=== PATIENT | male | born 1975 | race African-American/Black ===

== ENCOUNTER 2019-11-05 07:10 | Emergency (ER) | payer OTHER, MEDICAID, SELFPAY ==
[2019-11-05 07:19] VITALS: BP 116/78; PULSE 66; RESP 16; TEMP 36.8; O2SAT 97; BMI 38.3
--- NOTE | 2019-11-05 07:25 | ED.SKABFB ---
HPI - Skin/Abscess/Foreign Bdy General Chief complaint: Skin/Abscess/Foreign Body Stated complaint: BUMP ON TESTICLES, GROWING Time Seen by Provider: 11/05/19 07:25 History of Present Illness HPI narrative: 44-year-old gentleman with a history of type 2 diabetes diet controlled no new sexual partners presents with a growing mass in the posterior part of his scrotum heading towards his perineal body. Initially thought it was an ingrown hair or small cyst that has been present for a low number of months. His primary care physician had seen at an reassured him there is nothing to be concerned with. Over the last week it has grown dramatically extended into the upper part of the testicles lung perineal body and is becoming more uncomfortable because of the size. No fevers no chills. No difficulties with his testicles with erections with ejaculation or significant pain. He has no abdominal pain, no penile discharge no constipation no rashes and no lesions vesicles or skin changes over the scrotum perineum or testicles. Related Data Home Medications Medication Instructions Recorded Confirmed ifwjuge-jweomszrsemiu-eijaalaq 1 tab PO #0 12/24/16 [Excedrin Extra Strength] Previous Rx's Medication Instructions Recorded doxycycline hyclate 100 mg PO Q12H #20 cap 12/24/16 clindamycin HCl 300 mg PO TID #42 cap 11/05/19 sulfamethoxazole-trimethoprim 1 tab PO BID #28 tab 11/05/19 [Bactrim DS] Allergies Allergy/AdvReac Type Severity Reaction Status Date / Time hydrocodone [HYDROCODONE] Allergy Severe Unverified 05/16/17 12:33 Review of Systems Review of Systems Narrative: Pertinent positive and negative findings as per HPI Remainder of review of systems is otherwise unremarkable for Constitutional: Fevers, chills, weakness ENT: No sore throat, neck pain, ear pain CV: Chest pain, palpitations, dyspnea on exertion Respiratory: Cough, wheeze, dyspnea GI: Nausea, vomiting, diarrhea, change in bowel habits, black or bloody stools : Dysuria, hematuria, flank pain MS: Muscle weakness, numbness, joint swelling or warmth Skin: Rashes, nonhealing lesions Neuro: Syncope, dizziness, tingling Psych: Depression, anxiety, suicidal ideation Endocrine: Fatigue, heat or cold intolerance, very dry skin Heme: Easy bruising or bleeding Allergy: Seasonal rhinorrhea, itchy eyes Patient History Medical History Type 2 diabetes mellitus (Acute) Substance Use Type: marijuana Exam Narrative Exam Narrative: General: Healthy appearing, in no acute distress. Able to give a complete and coherent history. Well-nourished well-developed HEENT: Moist mucous membranes, normal sclera with reactive pupils, Abdomen: Soft nontender good bowel tones, no flank pain Skin: Warm and dry, no rashes Neurologic: Grossly neurologically intact with no obvious asymmetries or abnormalities Extremities: No trauma, well perfused Psych: Cooperative, appropriate insight and affect Genitalia: Normal circumcised penis without skin changes vesicles or lesions. Bilaterally descended testicles that are nontender to palpation with no epididymal tenderness behind the left testicle connecting with perineal body there is an approximately 6 x 6 cm of fluctuance and with further evaluation it begins draining. There are 2 draining sites without significant necrosis or cellulitis around these 2 sites. Moderate volume of purulence material is easily expressed. Purulent material is sent for culture. It does appear that all of the fluctuance has drained nicely. Her still remains an approximately 4 x 4 cm of induration at the base of the scrotum on the left side without significant pain or cellulitis. Initial Vital Signs Initial Vital Signs: Vital Signs Temperature 98.3 F 11/05/19 07:19 Pulse Rate 66 11/05/19 07:19 Respiratory Rate 16 11/05/19 07:19 Blood Pressure 116/78 11/05/19 07:19 Pulse Oximetry 97 11/05/19 07:19 Course Orders Ordered: ED Orders 11/05/19 07:39 Wound Culture and Gram Stain Stat Vital Signs Vital signs: Vital Signs - 8 hr 11/05/19 07:19 Temperature 98.3 F Pulse Rate 66 Respiratory Rate 16 Blood Pressure 116/78 Pulse Oximetry 97 MDM - Skin/Abscess/Foreign Bdy MDM Narrative Medical decision making narrative: Care is briefly reviewed with Dr. Dowling, urology. In light of the nontoxic appearance otherwise no clinical evidence of sepsis, no surrounding cellulitis no fevers and no significant pain he did not feel that additional workup aside from draining the area and 14 days of antibiotics with MRSA coverage would be needed. Patient will be double covered for MRSA with peau Septra and clindamycin and discharged home. Discharge Plan Departure Patient Disposition: Home Clinical Impression: Abscess of scrotum Instructions: DI for Scrotal Abscess Activity Restrictions/Additional Instructions: Thank you for coming in today That little bump that you had was very likely an ingrown hair discharge you thought and then became infected. As we were doing her physical exam today it began draining itself and fortunately I believe we were able to get all of the pus out of the abscess. There is not any surrounding cellulitis or other infection. There is no evidence of overwhelming infection or sepsis. Your care is briefly reviewed with our on-call urologist who agreed that draining the abscess and 14 days of antibiotics to cover MRSA would be appropriate. i am going to have you begin Bactrim DS and clindamycin. Please complete a full 14 day course of antibiotics. This is a bit longer than we typically do an important to prevent any complications. If you notice that your having fevers, increasing redness spreading from your scrotum to your groin are appear legs, abdominal pain, body aches or chills or other symptoms with your scrotum testicles or penis that are concerning you need to return to the emergency department as soon as possible. I hope you heal quickly Prescriptions: New sulfamethoxazole-trimethoprim [Bactrim DS] 800-160 mg tablet 1 tab PO BID Qty: 28 RF: 0 clindamycin HCl 300 mg capsule 300 mg PO TID Qty: 42 RF: 0 No Action aeatgaq-wljqqkyoyexry-[id number] [Excedrin Extra Strength] 1 EACH tablet 1 tab PO Qty: 0 RF: 0 doxycycline hyclate 100 MG capsule 100 mg PO Q12H Qty: 20 RF: 0 Referrals: Blanco Asif ARNP [Primary Care Provider] -
== END 2019-11-05 07:58 | disposition home or self-care (01) ==
PROVIDERS: Emergency Provider Emergency Medicine; Family Provider Registered Nurse; PCP Registered Nurse
DX: N49.2 Inflammatory disorders of scrotum (principal)
CPT/HCPCS: 10060; 87070; 87205; 99281; 99282

== ENCOUNTER → 2021-08-03 14:38 | Outpatient (CLI) | payer OTHER, MEDICAID, SELFPAY ==
--- NOTE | 2021-08-03 | DI.US.S_ITS ---
PROCEDURE: US SCROTUM INDICATIONS: LEFT SCROTAL MASS TECHNIQUE: Real-time scanning was performed of the scrotum and testicles, with image documentation. Color and pulse Doppler interrogation was performed of both testicles. COMPARISON: None. FINDINGS: Right: Testicle is normal in size at 4.5 x 3.0 x 2.2 cm, and homogenous in echotexture. Epididymis is normal in overall size and morphology. 5 x 4 x 4 mm right epididymal head cyst is seen. Small right-sided hydrocele is seen. No varicoceles. Overlying scrotal skin is normal in thickness. Left: Testicle is normal in size at 4.7 x 3.0 x 2.3 cm, and homogeneous in echotexture. Epididymis is normal in overall size and morphology. Tiny 2 mm left epididymal head cyst is seen. There is moderate left-sided hydrocele. No varicoceles. Overlying scrotal skin is normal in thickness. Doppler: Color and pulse Doppler demonstrate normal and symmetric arterial flow in both testicles. Focused ultrasound examination of left inguinal region at patient's reported area of palpable lump shows hypoechoic area just beneath the skin surface measures 1.4 x 2.8 x 0.5 cm in size and show no internal vascularity. IMPRESSION: 1. Left greater than right bilateral hydroceles. Tiny bilateral epididymal head cysts as above. Normal appearing bilateral testes. 2. 1.4 x 2.8 x 0.5 cm hypoechoic area within left scrotal subcutaneous soft tissue at patient's reported area of pain and show no internal vascularity. Finding may represent a small organizing hematoma. Suggest clinical correlation and follow-up. Dictated by: Jhonatan Cortes M.D. on 08/03/2021 at 17:30 Approved by: hJonatan Cortes M.D. on 08/03/2021 at 17:33
== END ==
PROVIDERS: Family Provider Registered Nurse; PCP Registered Nurse; Referring Provider Registered Nurse; Visit Provider Registered Nurse
DX: N50.9 Disorder of male genital organs, unspecified (principal); N43.3 Hydrocele, unspecified
CPT/HCPCS: 76870

== ENCOUNTER → 2023-09-05 14:27 | Outpatient (CLI) | payer OTHER, SELFPAY ==
--- NOTE | 2023-09-05 14:29 | DI.US.S_ITS ---
PROCEDURE: US SCROTUM INDICATIONS: SCROTAL MASS TECHNIQUE: Real-time scanning was performed of the scrotum and testicles, with image documentation. Color and pulse Doppler interrogation was performed of the left testicle. COMPARISON: [facility], , US SCROTUM, 08/03/2021, 16:06. FINDINGS: Right: Testicle is normal in size at 4.4 x 2.2 x 3.0 cm, and homogenous in echotexture. Microcalcifications are seen within the testicle. Epididymis is normal in overall size and morphology. No hydrocele or varicoceles. Overlying scrotal skin is normal in thickness. Left: Testicle is normal in size at 4.5 x 2.0 x 2.9 cm, and homogeneous in echotexture. The epididymal head is normal in overall size and morphology. There is a 2.7 x 0.8 x 1.8 cm extratesticular lesion that is heterogeneous in appearance and well marginated Microcalcifications are seen within the testicle. No varicoceles. Overlying scrotal skin is normal in thickness. Doppler: Color and pulse Doppler demonstrate normal and symmetric arterial flow in the left testicle. Doppler was not performed on the right testicle. IMPRESSION: 1. There are bilateral micro calcifications within both testicles. 2. There is a 2.7 x 0.8 x 1.8 cm left extratesticular lesion that is heterogeneous in appearance and well marginated. The lesion is inferior lateral to the scrotum. This finding is of uncertain etiology and may represent a papillary cystadenoma of the epididymal tail. Dictated by: Garcia Garcia M.D. on 09/06/2023 at 10:06 Approved by: Garcia Garcia M.D. on 09/06/2023 at 10:31
== END ==
PROVIDERS: Family Provider Registered Nurse; PCP Registered Nurse; Referring Provider Registered Nurse; Visit Provider Registered Nurse
DX: N50.89 Other specified disorders of the male genital organs (principal)
CPT/HCPCS: 76870